=== PATIENT | male | born 1990 | race Caucasian/White ===

== ENCOUNTER 2016-12-09 11:09 | Emergency (ER) | payer MEDICAID ==
[2016-12-09 11:17] VITALS: BP 109/65
--- NOTE | 2016-12-09 12:19 | UC ---
Complaint Male HPI - HPI Summary HPI Summary: difficulty urination x 3 days , has been having a hard time voiding , no dysuria , no fever, no chills, + rash on his abdominal wall and legs for few months. - History of Current Complaint Chief Complaint: UCGU Stated Complaint: POSSIBLE UTI Time Seen by Provider: 12/09/16 11:12 Hx Obtained From: Patient, Family/Addresser Onset/Duration: Gradual Onset, Lasting Days - 3, Still Present Timing: Constant Severity Initially: Moderate Severity Currently: Moderate Aggravating Factor(s): Voiding Alleviating Factor(s): Nothing Associated Signs And Symptoms: Negative: Diaphoresis, Back Pain, Fever, Hematuria, Dysuria, Constipation, Blood in Stool, Rectal Pain, Appetite, Nausea , Vomiting(# Of Episodes =), Penile Swelling, Penile Discharge - Allergies/Home Medications Allergies/Adverse Reactions: Allergies Allergy/AdvReac Type Severity Reaction Status Date / Time Azithromycin [From Zithromax] Allergy Hives Verified 07/30/15 07:20 Sulfamethoxazole Allergy See Comment Verified 07/30/15 07:20 w/Trimethoprim [From Bactrim] Home Medications: Home Medications Lamotrigine 25 mg PO 12/09/16 [History] PMH/Surg Hx/FS Hx/Imm Hx Psychological History: Anxiety, Other - ocd Other Psychological History: ocd Cancer History: Breast Cancer - Surgical History Surgical History: None - Family History Known Family History: Positive: None Negative: Diabetes - Social History Alcohol Use: None Substance Use Type: None Smoking Status (MU): Never Smoked Tobacco Review of Systems Constitutional: Negative Skin: Rash Eyes: Negative ENT: Negative Respiratory: Negative Cardiovascular: Negative Gastrointestinal: Negative Motor: Negative All Other Systems Reviewed And Are Negative: Yes Physical Exam Triage Information Reviewed: Yes Appearance: Well-Appearing, No Pain Distress, Well-Nourished Vital Signs: Initial Vital Signs Temp 97.8 F 12/09/16 11:13 Pulse 85 12/09/16 11:13 Resp 18 12/09/16 11:13 BP 109/65 12/09/16 11:13 Pulse Ox 98 12/09/16 11:13 Vital Signs Reviewed: Yes Eyes: Positive: Conjunctiva Clear ENT: Positive: Normal ENT inspection, Hearing grossly normal, Pharynx normal Neck: Positive: Supple, Nontender, No Lymphadenopathy Respiratory: Positive: Chest non-tender, Lungs clear, Normal breath sounds Cardiovascular: Positive: RRR, No Murmur, Pulses Normal Abdominal Exam: Normal Abdomen Description: Positive: Nontender, Soft Skin: Positive: rashes - papular rash on the abd and upper thighs Complaint Male Course/Dx - Course Course Of Treatment: will check cbc, cmp ,. stop Lamictal. follow up with your pcp rogelio - Differential Dx/Diagnosis Provider Diagnoses: difficulty urination. dematitis Discharge - Discharge Plan Condition: Stable Disposition: HOME Patient Education Materials: Urinary Retention in Men (ED) Referrals: Lan MCGEE,Santy Palacios [Primary Care Provider] - 3 Days Additional Instructions: difficulty urination , hematuria , body rash concern about his symptoms are related to the side effect of the Lamictal will have you stop Lamictal for now, will check cbc, cmp , please call the the office in 2 days for the results please follow up with your pcp or your psychiatrist rogelio
[2016-12-09 13:34] LABS: Hematocrit 51 % (42-52); Hemoglobin 16.8 g/dl (14.0-18.0); Mean Corpuscular HGB Conc 33 g/dl (31-36); Mean Corpuscular Hemoglobin 30 pg (27-31); Mean Corpuscular Volume 91 fL (80-94); Mean Platelet Volume 7 um3 (7.4-10.4); Red Blood Count 5.58 10^6/ul (4.0-5.4); Red Cell Distribution Width 13 % (10.5-15)
[2016-12-09 13:48] LABS: Albumin 4.6 g/dL (3.2-5.2); BUN/Creatinine Ratio 18.9 (8-20); Calcium 9.4 mg/dL (8.6-10.3); EGFR African American 121.4 (>60); EGFR Non-African American 94.4 (>60); Globulin 2.3 g/dL (2-4); Total Bilirubin 0.5 mg/dL (0.2-1.0); Total Protein 6.9 g/dL (6.4-8.9)
--- NOTE | 2016-12-10 13:09 | UC ---
Progress - Progress Note Progress Note: call to assure patient has arranged follow up care as suggested by Dr. Goode
== END 2016-12-09 12:33 | disposition home or self-care (01) ==
LOC: UCEAST 11:09
DX: R39.198 Other difficulties with micturition (principal); L30.9 Dermatitis, unspecified; Z88.1 Allergy status to other antibiotic agents; Z88.2 Allergy status to sulfonamides; F41.9 Anxiety disorder, unspecified; Z85.3 Personal history of malignant neoplasm of breast
CPT/HCPCS: 36415; 80053; 81003; 85025; 99211; G0463